=== PATIENT | female | born 1975 | race Caucasian/White ===

== ENCOUNTER → 2018-11-11 18:11 | Outpatient (CLI) | payer OTHER, SELFPAY | PROVIDERS: Family Provider Family Medicine; PCP Family Medicine; Referring Provider Obstetrics & Gynecology; Visit Provider Obstetrics & Gynecology | DX: R30.0 Dysuria (principal) | CPT/HCPCS: 87086 ==

== ENCOUNTER → 2019-04-13 14:26 | Outpatient (CLI) | payer OTHER, SELFPAY ==
--- NOTE | 2019-04-13 11:30 | CER_PTH ---
PATIENT: MICHAEL CALLE LOC: [facility] U#:[id number] AGE/SX: 50/F ROOM: RE04/13/[address]: Dr. Jackie Glover MD : 1975 BED: DIS: SPEC #: [id number] RECD: 04/13/19 14:22 STATUS: FUNMILAYO TERESA #: [id number] KEVEN: 04/13/19 11:[address]: Jackie Glover DEPT: SURGICAL PATHOLOGY RECD BY: Marco Antonio Graham ENTERED: 04/13/19 14:30 SP TYPE: CERV OTHR DR: Dr. Raghavendra Mendiola MD Tissues: Uterine cervix, NOS Procedures: Surgery Specimen Level IV HEADER OPERATION: Polypectomy PRE-OP DIAGNOSIS: Polyp of cervix, N84.1 TISSUE SUBMITTED: Endocervical polyp MICROSCOPIC DIAGNOSIS Endocervical polyp, polypectomy: Benign cervical polyp, mildly inflamed. See comment. AM:ivis 04/14/19 COMMENT The polyp contains both squamous and endocervical mucosa. MICROSCOPIC DESCRIPTION Slides are reviewed. GROSS DESCRIPTION Received in fixative is one container labeled with the patient's name and designated cervical polyp. The specimen consists of a piece of weber-pink polyp measuring 1 x 0.5 x 0.2 cm. A small amount of mucoid material is also noted. The entire specimen is submitted in one cassette. / SJ:rg 04/13/19 TC:1 CPT: 37482
[2019-04-18 17:31] LABS: HPV Reflexed? NOT INDICATED
== END ==
PROVIDERS: Family Provider Family Medicine; PCP Family Medicine; Referring Provider Obstetrics & Gynecology; Visit Provider Obstetrics & Gynecology
DX: N84.1 Polyp of cervix uteri (principal); Z12.4 Encounter for screening for malignant neoplasm of cervix
CPT/HCPCS: 88175; 88305; G0145

== ENCOUNTER → 2019-04-29 08:24 | Outpatient (CLI) | payer OTHER, SELFPAY ==
--- NOTE | 2019-04-29 08:26 | BI_ITS ---
MAMMOGRAPHY - BILATERAL SCREENING REASON FOR EXAM: Female, 44 years old. Routine annual screening examination. PERTINENT HISTORY: Non-contributory. TECHNIQUE: Digital bilateral breast lilly (3D mammographic acquisition) in the CC and MLO projections. 2-D mediolateral oblique (MLO) and craniocaudad (CC) views of both breasts were obtained. CAD: Full Field Digital Mammography with Computer Added Detection was performed. COMPARISON: Comparison is made with prior study to March 10, 2017 and November 20, 2015. FINDINGS: Breast Composition: The breasts are heterogeneously dense, which may obscure small masses. There are no dominant masses or suspicious calcifications. No other significant abnormalities are identified. There has been no significant change since the prior study. BI/SCREEN MAMM (CAD) W/LILLY BILAT IMPRESSION: Stable bilateral screening mammogram. Yearly follow-up mammogram recommended. (A) ASSESSMENT CATEGORY: BIRADS Category 1: Negative. A letter regarding these results will be sent to the patient by the facility within 30 days. Approximately 10% of breast cancers are not detected by mammography. A normal mammogram should not delay biopsy of a clinically suspicious abnormality. [id number] Electronically Signed: Hebert Schroeder, at 13:11 EDT , Service support ,
== END ==
PROVIDERS: Family Provider Family Medicine; PCP Family Medicine; Referring Provider Obstetrics & Gynecology; Visit Provider Obstetrics & Gynecology
DX: Z12.31 Encounter for screening mammogram for malignant neoplasm of breast (principal)
CPT/HCPCS: 77063; 77067

== ENCOUNTER → 2019-06-24 14:09 | Outpatient (CLI) | payer OTHER, SELFPAY ==
[2019-06-24 12:29] VITALS: BMI 26.6
== END ==
PROVIDERS: Family Provider Family Medicine; PCP Family Medicine; Referring Provider Physician Assistant Surgical; Visit Provider Physician Assistant Surgical
DX: J02.9 Acute pharyngitis, unspecified (principal)
CPT/HCPCS: 87070

== ENCOUNTER → 2019-08-03 07:25 | Outpatient (CLI) | payer OTHER, SELFPAY ==
[2019-06-24 12:29] VITALS: BMI 26.6
[2019-08-03 10:27] LABS: Anion Gap 4 (5-15); BUN 18 mg/dL (7-18); BUN/Creat Ratio 24.3 RATIO (10-20); Calcium,Total 8.9 mg/dL (8.5-10.1); Chloride 110 mmol/L (98-107); Cholesterol 197 mg/dL (200); Creatinine, Serum 0.74 mg/dL (0.55-1.02); EST Glomerular Filtration Rate 90 mL/min (>60); Est Glom Filt Rate - Afr Amer 109 mL/min (>60); Glucose 97 mg/dL (74-106); High Density Lipoprotein 73 mg/dL; Sodium Level 140 mmol/L (136-145); Thyroid Stim Hormone (TSH) 1.46 uIU/mL (0.358-3.74); Triglycerides 54 mg/dL; Very Low Density Lipoprotein 11 mg/dL (5-40)
[2019-08-03 10:43] LABS: Vitamin D,25 Hydroxy 20.4 ng/mL (29.95-100.01)
== END ==
PROVIDERS: PCP Family Medicine; Referring Provider Family Medicine; Visit Provider Family Medicine
DX: Z13.29 Encounter for screening for other suspected endocrine disorder (principal); Z13.220 Encounter for screening for lipoid disorders; Z13.21 Encounter for screening for nutritional disorder; Z13.1 Encounter for screening for diabetes mellitus
CPT/HCPCS: 36415; 80048; 80061; 82306; 84443

== ENCOUNTER → 2020-07-25 11:53 | Outpatient (CLI) | payer OTHER, SELFPAY ==
[2019-06-24 12:29] VITALS: BMI 26.6
[2020-07-25 15:39] LABS: Vitamin D,25 Hydroxy 23.6 ng/mL
[2020-07-25 15:51] LABS: Cholesterol 203 mg/dL (200); High Density Lipoprotein 66 mg/dL; Thyroid Stim Hormone (TSH) 1.12 uIU/mL (0.358-3.74); Triglycerides 65 mg/dL; Very Low Density Lipoprotein 13 mg/dL (5-40)
[2020-07-26 08:17] LABS: SARS-COV-2 TOTAL ABS Reactive (Nonreactive)
== END ==
PROVIDERS: PCP Family Medicine; Referring Provider Family Medicine; Visit Provider Family Medicine
DX: Z01.84 Encounter for antibody response examination (principal); Z13.220 Encounter for screening for lipoid disorders; Z13.29 Encounter for screening for other suspected endocrine disorder; Z13.21 Encounter for screening for nutritional disorder; Z13.31 Encounter for screening for depression
CPT/HCPCS: 36415; 80061; 82306; 84443; 86769

== ENCOUNTER → 2021-01-17 09:02 | Outpatient (CLI) | payer OTHER, SELFPAY ==
[2019-06-24 12:29] VITALS: BMI 26.6
--- NOTE | 2021-01-17 | IMM_PTH ---
PATIENT: MICHAEL CALLE LOC: [facility] U#:[id number] AGE/SX: 50/F ROOM: RE01/17/[address]: Dr. Mila Alfaro MD : 1975 BED: DIS: SPEC #: [id number] RECD: 01/18/21 11:38 STATUS: FUNMILAYO RE #: [id number] KEVEN: 01/17/21 00:[address]: Mila Alfaro DEPT: IMMUNOHISTOCHEMISTRY RECD BY: Shiloh Jackson Tissues: Left breast, NOS Procedures: E-CAD (initial) CALPONIN-1 (add) CK8 (add) P40 (add) PHYSICIAN & INSTITUTION [place] [id number] SPECIMEN INFORMATION: Tissue Source: Left breast Clinical Info: Grouped pleomorphic calcifications left breast at 1 o?clock middle depth Specimen Number: [id number] CPT code: 46995, 38246 x3 METHODOLOGY: Deparaffinized sections of prefer/formalin-fixed tissue or PAP/DQ stained slides are incubated with monoclonal/polyclonal antibodies/oligonucleotide probes. Localization is made via biotin free immunoperoxidase method. Appropriate controls are performed and reacted as expected. Results on target cell population are indicated in the following table: RESULTS: ANTIBODY / CLONE RESULT E-Cad (ECH-6) negative CK8 ([id number]) positive Calponin-1 (OL234K) positive P40 (BC28) positive These tests were developed and their performance characteristics determined by [facility]. They may not have been cleared or approved by the U.S. Food and Drug Administration. The FDA has determined that such clearance or approval is not necessary. The above immunohistochemical/dualISH markers are ordered and reviewed by the Pathologist. INTERPRETATION: Left breast, stereotactic core biopsy: Focal atypical lobular hyperplasia. SJ:ivis 01/21/2021
--- NOTE | 2021-01-17 09:20 | BRBX_PTH ---
PATIENT: MICHAEL CALLE LOC: [facility] U#:[id number] AGE/SX: 50/F ROOM: RE01/17/[address]: Dr. Mila Alfaro MD : 1975 BED: DIS: SPEC #: [id number] RECD: 01/17/21 10:01 STATUS: FUNMILAYO TERESA #: [id number] KEVEN: 01/17/21 09:[address]: Mila Alfaro DEPT: SURGICAL PATHOLOGY RECD BY: Marco Antonio Graham Tissues: Left breast, NOS Procedures: Surgery Specimen Level IV HEADER OPERATION: Left breast stereotactic biopsy PRE-OP DIAGNOSIS: Grouped pleomorphic calcifications left breast at 1 o?clock middle depth TISSUE SUBMITTED: Left breast core tissue ISCHEMIC TIME: 1 minute FIXATION TIME: 10 hours MICROSCOPIC DIAGNOSIS Left breast, stereotactic core biopsy: Hyalinized fibroadenoma with focal calcifications. Fibrocystic changes, adenosis and intraductal hyperplasia without atypia. Focal atypical lobular hyperplasia. Negative for malignancy. See comment. RAMÓN:ivis 01/18/2021 COMMENT Focal calcifications are also noted in the area of benign breast tissue, adenosis and intraductal hyperplasia without atypia. Immunohistochemistry ([id number]) supports the diagnosis of focal atypical lobular hyperplasia. Correlation with clinical, radiologic findings and appropriate follow up are necessary. Case has been reviewed in consultation with Dr. Tidwell who concurs with the above diagnosis. IDC:AM MICROSCOPIC DESCRIPTION Slides are reviewed. GROSS DESCRIPTION Received in fixative is one container labeled with the patient name and designated left breast. The specimen consists of multiple elongated fragments of weber-yellow fibroadipose tissue that in aggregate measure 5 x 3 x 0.3 cm. The entire specimen is submitted in two cassettes. / RAMÓN:ivis 01/17/21 TC:5 CPT: 97829
--- NOTE | 2021-01-17 13:52 | OP.PCM_ITS ---
Report of Operation Date of Procedure: 01/17/21 Pre-Operative Diagnosis: abnormal calcifications on left breast mammograms Post-Operative Diagnosis: same Surgery/Procedure Performed:: left stereotactic breast biopsy Description of Surgical Findings:: small diffuse area of calcifications Surgeon: Mila Alfaro Type of Anesthesia: Local (1%xylocaine) Specimen's removed: left breast tissue Estimated Blood Loss (mL): minimal Description of Procedure: After informed consent was given, the patient was brought into the Breast Biopsy suite. Appropriate time out protocol was followed. The patient was placed in the prone position on the stereotactic biopsy table. The patient?s left breast was then placed in the opening at the head of the biopsy table. A exhibit carpenter compression mammogram was then obtained in the lateral view. The suspicious radiological lesion was thus identified. Stereo pictures of the lesion were then taken for XYZ coordinates. The Mammotome biopsy stylus was then positioned where it would be entering into the patient?s breast. The skin at this site was then cleansed with a surgical skin preparation. The skin and subcutaneous tissues at this site were then infiltrated with 1% xylocaine. A small skin incision was made with an 11 blade scalpel. The biopsy stylus was then positioned into the patient?s breast at the proper coordinates of depth. Using the Mammotome vacuum-assist device, several core samples of breast tissue were obtained. A specimen mammogram was the obtained. It revealed that the abnormal calcifications were within the specimen. I reviewed this personally and concluded that the tissue sampling was adequate. A hemostatic marker clip, bow tie, was then placed into the biopsy cavity and a exhibit carpenter film revealed that it was properly deployed. The patient was then placed in the supine position and pressure was applied to the breast until no active bleeding was noted. Steristrips were applied to reapproximate the skin. A unilateral mammogram in the CC and MLO view were then taken which revealed that the marker clip was in the same area as the previous suspicious lesion. The patient tolerated the procedure well and was discharged from the Breast Biopsy suite in good condition. Complications none noted
== END ==
PROVIDERS: Referring Provider Surgery; Visit Provider Surgery
DX: N60.22 Fibroadenosis of left breast (principal); D24.2 Benign neoplasm of left breast; N60.92 Unspecified benign mammary dysplasia of left breast
CPT/HCPCS: 19081; 88305; 88341; 88342; J7050; A4648

== ENCOUNTER 2021-01-29 10:07 | Day surgery (SDC) | payer OTHER, SELFPAY ==
[2019-06-24 12:29] VITALS: BMI 26.6
--- NOTE | 2021-01-28 20:05 | PCM.HP.BLA ---
History and Physical Date of Admission: 01/29/21 Olivia Kwon 1975 ? CHIEF COMPLAINT: left breast atypical lobular hyperplasia ? HPI: The patient is a 45 year old female presents with abnormal left breast mammograms. s/p left breast stereotactic biopsy revealing atypical lobular hyperplasia. She presents for wide local excision. ? PAST MEDICAL HISTORY ? NEGATIVE MEDICAL HISTORY ? PAST SURGICAL HISTORY ? LIGATE FALLOPIAN TUBE ? ? ? MEDICATIONS: denies ? ALLERGIES: Environmental [Other] NKDA ? PERSONAL HISTORY: ? Smoking status: Never Smoker ? Smokeless tobacco: Never Used Vaping Use ? Vaping Use: Never used Substance Use Topics ? Alcohol use: Yes ? Drug use: No FAMILY HISTORY ? Emphysema Maternal Grandfather ? REVIEW OF SYSTEMS: General: The patient denies fatigue, denies weight loss, denies weight gain, denies feeling hot, and denies feelings of cold. Eyes: The patient denies glaucoma, NOTES eye injury/surgery, does not wear glasses or contacts. Ear/Nose/Throat: The patient NOTES allergies, denies hayfever, denies ear infections, and denies bloody noses. ascular: The patient denies chest pain, denies heart disease, denies high blood pressure,denies cardiac stent, denies prior heart attack, denies irregular heart beat, denies high cholesterol, denies poor circulation, denies heart failure, other cardiac issues, denies claudication, denies cold feet, denies peripheral arterial stent. Respiratory: The patient denies tuberculosis, denies pneumonia, denies frequent cough, denies pulmonary embolism, denies shortness of breath, and denies coughing up blood. Gastrointestinal: The patient denies difficulty swallowing, denies acid reflux, denies ulcers, denies vomiting, denies jaundice/hepatitis, denies gallbladder problems, denies black or tarry stools, denies hemorrhoids, denies bleeding from rectum, denies diverticulitis, denies constipation, denies diarrhea, denies loss of stool control, and denies hernias. Kidney/Bladder: The patient denies kidney stones, denies urine infections, and denies bloody urine. Skin: The patient denies a history of skin cancer, denies bleeding/changing moles, and denies a history of skin rash. Neurologic: The patient denies a history of epilepsy/convulsions, NOTES headaches, denies head/spinal injuries, and denies stroke/TIA. Psychiatric: The patient denies psychiatric medications, denies depression, and denies voices, denies substance abuse. Endocrine: The patient denies thyroid disorders, denies diabetes, and denies hormonal problems. Hematologic: The patient denies a history of bruising, denies bleeding, and denies anemia, denies blood clots. Infections: The patient denies a history of measles and mumps, denies rheumatic fever, and denies sexually transmitted diseases. Musculoskeletal: The patient denies back pain/injury, denies back problems, denies sciatica, denies knee/foot trouble, denies arthritis, or denies gout. Obstetrical: Menarche age 10, Ab1, first age 34, breast feeding 10m, BCP use initially age 17 until age 29, LMP 01/04 When was patient's last Mammogram screening? 12/10/2020 Last Colonoscopy: N/A Chelsea Nix LPN PHYSICAL EXAMINATION: General: The patient is 45 year old female, well nourished, well hydrated in no acute distress. The patient is oriented to time, place, and person. VITALS: Blood pressure 124/78, pulse 97, temperature 37.1 ?C (98.7 ?F), height 165.1 cm (5' 5), weight 79.4 kg (175 lb), last menstrual period 12/09/2020, SpO2 97 %. Body mass index is 29.12 kg/m?. Head ? Normocephalic. EOM intact with sclera clear and no icterus noted. Neck - supple with no jugular venous distention noted. Trachea is midline. No thyroid enlargement or thyroid nodules detected. No masses noted. Chest/breast ? no asymmetry of breasts noted, no suspicious skin lesions noted, no nipple discharge and both nipples everted, no breast masses noted Lungs ? clear to auscultation. Normal breath sounds. No rales/rhonchi/wheezing noted. No labored breathing noted, such as retractions. No cough heard. Heart ? normal S1 and S2 auscultated. No rubs/clicks/murmurs noted. Regular rate. Abdomen ? soft and benign. Normal bowel sounds No abdominal bruits noted. Extremities ? no calf tenderness noted. No pitting edema noted. Skin ? normal skin integrity. Lymph ? no cervical adenopathy detected, no supraclavicular adenopathy detected, no axillary adenopathy detected Neurological ? gait normal, no focal deficits noted Psych ? calm and appropriate RADIOLOGIC STUDIES: As Noted ? IMPRESSION: abnormal calcifications on left breast mammograms ? PLAN: I have discussed the above with the patient. I have recommended wide local excision - that is open left breast biopsy via wire localization I have counseled the patient as to the risks of the procedure, including but not limited to: infection, bleeding, injury to any blood vessels/nerves, scar tissue, wound infections, complications of anesthesia, etc. ? the patient understands. The patient wishes to proceed. I have answered all questions to the patient?s satisfaction and the patient has no further questions. Mila Alfaro MD
[2021-01-29] VITALS (7 sets, daily range): BP systolic 95–111; BP diastolic 65–79; PULSE 66–90; RESP 14–16; TEMP 36–36.6; O2SAT 97–100; BMI 28.7
--- NOTE | 2021-01-29 | BREAST_PTH ---
PATIENT: MICHAEL CALLE LOC: [facility] U#:[id number] AGE/SX: 45/F ROOM: RE01/29/[address]: Dr. Mila Alfaro MD : 1975 BED: DIS: 01/29/2021 SPEC #: [id number] RECD: 01/29/21 15:01 STATUS: FUNMILAYO REAlaina #: [id number] KEVEN: 01/29/21 00:[address]: Mila Alfaro DEPT: SURGICAL PATHOLOGY RECD BY: Gail Strauss ENTERED: 01/30/21 08:41 SP TYPE: BREAST OTHR DR: Dr. Raghavendra Mendiola MD Tissues: Left breast, NOS Procedures: Surgery Specimen Level V HEADER OPERATION: Left breast lumpectomy PRE-OP DIAGNOSIS: Abnormal calcifications on left breast mammogram TISSUE SUBMITTED: Left breast tissue, two short sutures - anterior, one short suture - superior, long suture - posterior MICROSCOPIC DIAGNOSIS Left breast, lumpectomy: Lobular neoplasia present. Intraductal hyperplasia without atypia. Fibrocystic change. Changes of previous biopsy. Banal microcalcifications. See comment. 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 No invasive carcinoma is identified. Immunohistochemistry ([id number]) supports the above diagnosis. Reference is made to the patient's left breast stereotactic core biopsy ([id number]) in which hyalinized fibroadenoma, fibrocystic change and focal atypical lobular hyperplasia was identified. Case has been reviewed in consultation with Dr. Gates who concurs with the above diagnosis. IDC:RAMÓN MICROSCOPIC DESCRIPTION Slides are reviewed. GROSS DESCRIPTION Received fresh and post-fixed in formalin is one container labeled with the patient's name and designated left breast tissue, two short sutures - anterior, one short suture - superior, long suture - posterior. The specimen consists of a piece of fibroadipose tissue with needle localization measuring 6 x 5 x 3.5 cm. The specimen is inked as follows: anterior - yellow, posterior - black, superior - blue, inferior - green, medial - red and lateral - orange. Sections reveal weber-yellow adipose cut surfaces with focal fibrous area. No ill-defined mass lesion is identified. Focal area of hemorrhage consistent with previous biopsy cavity is noted close to posterior margin. Aircraft Engine Specialist sections are submitted in 12 cassettes from lateral to medial margin including resection margin. About 90% of the specimen is submitted. Sections will be submitted after additional fixation. / RAMÓN:ivis 01/30/21 TC:0 CPT: 51140
--- NOTE | 2021-01-29 | IMM_PTH ---
PATIENT: MICHAEL CALLE LOC: [facility] [place] U#:[id number] AGE/SX: 45/F ROOM: RE01/29/[address]: Dr. Mila Alfaro MD : 1975 BED: DIS: 01/29/2021 SPEC #: [id number] RECD: 02/01/21 12:56 STATUS: FUNMILAYO REQ #: [id number] KEVEN: 01/29/21 00:[address]: Mila Alfaro DEPT: IMMUNOHISTOCHEMISTRY RECD BY: Shiloh Jackson ENTERED: 02/01/21 12:57 SP TYPE: IMMUNO OTHR DR: Dr. Raghavendra Mendiola MD Tissues: Left breast, NOS Procedures: E-CAD (initial) CALPONIN-1 (add) E-CAD (add) P40 (add) PHYSICIAN & INSTITUTION [place] [id number] SPECIMEN INFORMATION: Tissue Source: Left breast Clinical Info: Left breast calcifications Specimen Number: [id number] #3, 5 & 8 CPT code: 74859, 34422 x8 METHODOLOGY: Deparaffinized sections of prefer/formalin-fixed tissue or PAP/DQ stained slides are incubated with monoclonal/polyclonal antibodies/oligonucleotide probes. Localization is made via biotin free immunoperoxidase method. Appropriate controls are performed and reacted as expected. Results on target cell population are indicated in the following table: RESULTS: ANTIBODY / CLONE RESULT Block 3 E-Cad (ECH-6) negative Calponin-1 (RF109R) positive P40 (BC28) positive Block 5 E-Cad (ECH-6) negative Calponin-1 (NW654C) positive P40 (BC28) positive Block 8 E-Cad (ECH-6) negative Calponin-1 (WQ833J) positive P40 (BC28) positive These tests were developed and their performance characteristics determined by [facility]. They may not have been cleared or approved by the U.S. Food and Drug Administration. The FDA has determined that such clearance or approval is not necessary. The above immunohistochemical/dualISH markers are ordered and reviewed by the Pathologist. INTERPRETATION: Left breast, lumpectomy: Consistent with lobular intraepithelial neoplasia. AM:ivis 02/04/2021 Case has been reviewed in consultation with Dr. Gates who concurs with the above diagnosis. IDC:RAMÓN
--- NOTE | 2021-01-29 10:10 | BI_ITS ---
SURGICAL BREAST SPECIMEN RADIOGRAPH CLINICAL: Document presence of tissue clip marker in biopsy specimen. FINDINGS: Specimen shows presence of tissue clip marker. Electronically Signed: Hebert Schroeder MD at 15:30 EDT , Service support , BI/Breast Biopsy Specimen
[2021-01-29] MEDS: Cefazolin 2 GM in 0.9% Normal Saline 100 ML IV (14:25)
--- NOTE | 2021-01-29 15:08 | OP.PCM_ITS ---
Report of Operation Date of Procedure: 01/29/21 Pre-Operative Diagnosis: atypical lobular hyperplasia of left breast Post-Operative Diagnosis: same Surgery/Procedure Performed:: left breast biopsy via wire localization Description of Surgical Findings:: deep RUO quadrant lesion Surgeon: Mila Alfaro spray machine operator: Arsen Wilson Type of Anesthesia: MAC/Supplemental/Local Anesthesiologist: Deni Daniels Specimen's removed: left breast tissue Estimated Blood Loss (mL): < 10 ml Fluids Replaced: 550 ml RL Description of Procedure: After informed consent was given, the patient was brought into the Breast Stereotactic Radiology suite. Appropriate time out protocol was followed. The patient was then placed in the prone position on the [place] stereotactic table. The patient?s left breast was placed in the opening at the head of the table. A cash applications clerk compression mammogram was then obtained in the lateral view. The marker clip that was previously placed was identified. Stereo pictures of the lesion were then taken for XYZ coordinates. The Kopans needle was then positioned where it would be entering into the patient?s breast. The skin at this site was then cleansed with a surgical skin preparation. The skin and subcutaneous tissues at this site were then infiltrated with 1% xylocaine. The Kopans needle was then positioned into the patient?s breast at the proper coordinates of depth. A cash applications clerk film was obtained which revealed the wire in proper position. The patient was then placed in the supine position and the wire was taped into place. A unilateral mammogram in the CC and MLO view were then taken for use in the OR. The patient tolerated this portion of the procedure well and was brought to the AC awaiting surgery in the OR. The patient was then brought to the Operating Room. Appropriate time out protocol was followed. The patient was then placed on the operating table in the supine position. A wire had already been placed in the stereotactic biopsy room in the radiology department as described above. The left breast with the wire in placed was then prepped with a sterile surgical skin preparation and sterile surgical drapes were placed. The skin and subcutaneous tissues at the site of the breast lesion was then infiltrated with 1% xylocaine with epinephrine. A transverse curvilinear skin incision was then made in the lateral aspect of the left breast. It was carried down through to the subcutaneous tissues. Hemostasis was controlled with electrocautery. The wire was then palpated out within the breast tissue. It was brought into the wound from outside. The breast tissue surrounding the wire was then carefully palpated out and from the surrounding tissues using electrocautery. Of note, the lesion was deep, to the fascia of the pectoralis muscle. The breast tissue, once from the breast, was then forwarded to the radiology department, where a specimen mammogram revealed that the marker clip was within the specimen. The breast tissue was then forwarded to pathology for analysis. The tissue was marked with two short sutures anteriorly, one long suture posteriorly, one short suture superiorly. The wound cavity was carefully examined. No further suspicious tissue was palpated or visualized. Hemostasis was carefully controlled with electrocautery. The subdermal tissues were then approximated with vicryl suture. The incision was then reapproximated close using running monocryl suture. Cavilon and steristrips were then placed to reinforce the skin closure. Sponge, needle, and instrument count were verified and correct at the time of skin closure. A sterile dressing was then applied. The patient was then brought to the Recovery Room in stable condition. Complications none noted Admit VTE Documentation VTE Present on Admission: Yes VTE Mechan Device Prophylaxis: SCD's
[2021-01-29] MEDS: Lidocaine 1% /Epi 1:100 (50ml) 50 ML VIAL (15:09)
--- NOTE | 2021-01-29 15:11 | DCINST_ITS ---
Discharge Instructions Follow Up Care Test Results: Test results from this visit will be discussed in further detail at your follow-up appointment, if applicable. Discharge Plan Admission Attending Provider: Mila Alfaro Primary Care Provider: Vito Mendiola Instructions Additional Instructions / Restrictions: Recommended pain control regimen - May take 600 mg ibuprofen (Motrin) and then in 3-4 hours, may take 650 mg acetaminophen (Tylenol), then in 3-4 hours may take 600 mg ibuprofen, then in 3- 4 hours may take 650 mg acetaminophen and so on for 2-3 days May take narcotic pain medication for pain that is not controlled by above and at night for comfort through the night Leave dressings in place May shower, do not scrub in the area of the dressing as it may unravel. If dressing become overly soiled you may remove them but leave incision site open to air. Do not soak - no tub baths/swimming Ice applied to areas of discomfort may help For breast surgeries - wear supportive bra during the day to prevent the weight of your breasts from pulling on the incisional site. Please call my office for an appointment to see me in about 1 week. Office number is If any questions, please call my office at and ask the shredding floor equipment operator for the general surgery nurses desk Discharge Orders/Prescriptions Prescriptions: New hydrocodone-acetaminophen 5-325 mg tablet 1 tab PO Q8H 3 Days Qty: 7 RF: 0 No Action NK RF: 0 Referrals / Follow Up: Vito Mendiola MD [Primary Care Provider] - Disposition Disposition (needs filled in before D/C Order can be placed): Home, Self Care
== END 2021-01-29 17:15 | disposition home or self-care (01) ==
LOC: BIRAD 10:09 → SDC 10:10 → AC 10:16
PROVIDERS: PCP Family Medicine; Referring Provider Surgery; Visit Provider Surgery
PROC: (CPT 19301; principal; 2021-01-29 12:45)
DX: C50.912 Malignant neoplasm of unspecified site of left female breast (principal); N60.12 Diffuse cystic mastopathy of left breast; N62 Hypertrophy of breast
CPT/HCPCS: 00400; 19101; 19283; 19281; 76098; 88305; 88307; 88341; 88342; J7120

== ENCOUNTER → 2021-06-18 12:02 | Outpatient (CLI) | payer OTHER, SELFPAY ==
--- NOTE | 2021-06-18 12:09 | RAD_ITS ---
STUDY: X-RAY - RIGHT FOOT CLINICAL: Pain in first metatarsal area, right foot injury. TECHNIQUE: 3 view(s) of the foot. COMPARISON: None. FINDINGS: Normal talus, calcaneus, and tarsal bones. Normal visualized subtalar, talonavicular, calcaneocuboid, tarsal and tarsometatarsal articulations. Normal metatarsi. Normal metatarsophalangeal joint of the great toe. Normal tibial and fibular sesamoid bones. Normal interphalangeal joint of the great toe. Normal phalanges of the great toe. Normal second through fifth metatarsophalangeal joints. Normal interphalangeal joints and phalanges of the lesser toes. The soft tissue structures are unremarkable. RAD/Foot min 3 Views IMPRESSION: No demonstrated right foot fracture. Electronically Signed: Albino Govea MD at 13:03 EST Tel , Service support ,
== END ==
PROVIDERS: PCP Family Medicine; Referring Provider Family Medicine; Visit Provider Family Medicine
DX: M79.671 Pain in right foot (principal)
CPT/HCPCS: 73630

== ENCOUNTER 2021-07-29 09:31 | Outpatient (CLI) | payer OTHER, SELFPAY ==
[2021-07-29 10:43] LABS: Vitamin D,25 Hydroxy 27.4 ng/mL
[2021-07-29 10:51] LABS: Anion Gap 7 (5-15); BUN 11 mg/dL (7-18); BUN/Creat Ratio 19.7 RATIO (10-20); Calcium,Total 8.6 mg/dL (8.5-10.1); Chloride 106 mmol/L (98-107); Cholesterol 191 mg/dL (200); Creatinine, Serum 0.56 mg/dL (0.55-1.02); EST Glomerular Filtration Rate 123 mL/min (>60); Est Glom Filt Rate - Afr Amer 149 mL/min (>60); Glucose 98 mg/dL (74-106); High Density Lipoprotein 72 mg/dL; Potassium 3.8 mmol/L (3.5-5.1); Sodium Level 138 mmol/L (136-145); Triglycerides 69 mg/dL; Very Low Density Lipoprotein 14 mg/dL (5-40)
== END 2021-07-29 23:59 | disposition short-term general hospital (02) ==
LOC: MTLAB 09:33
PROVIDERS: PCP Family Medicine; Referring Provider Family Medicine; Visit Provider Family Medicine
DX: Z13.1 Encounter for screening for diabetes mellitus (principal); Z13.220 Encounter for screening for lipoid disorders; E55.9 Vitamin D deficiency, unspecified
CPT/HCPCS: 36415; 80048; 80061; 82306

== ENCOUNTER 2022-03-20 15:00 | Outpatient (RCR) | payer OTHER, SELFPAY ==
--- NOTE | 2022-02-17 17:21 | HP.PTEVAL ---
Patient's Visit Information MICHAEL CALLE is a 47 year old F referred to Physical Therapy by Dr. Kannan Peterson DPM with a diagnosis of Achilles Tendonitis with Heel Spur. Date of Evaluation: 02/17/22 Physical Therapist: Jodi Rajput DPT - Visit Plan Frequency: 2x /Week Duration: 4 Weeks Plan: Focus on core s/s- Gastroc Stretching- Manual of Joshua and Possibly add DN PRN. HEP Given IE: TA contraction, bridge, hip adduction, clams - Subjective Patient reports that her right foot just really hurts. Its the worst in the AM and then better throughout the day. She has had pain for a few months. She has had it before but it goes away quickly and now its not going away and getting worse. She was walk/run 4-5x a week so she is now just using her bike. Pain is located along the Achilles and along the medial malleolus. No radiating pain. Describes it as dull and achy throughout the day- but the first step is pretty terrible. Worst: 7/10. Agg: morning and if she is really active the day before its horrible in the AM. Eases: moving, massage Best: 0/10. She has a night splint but she only wears it sometimes. She is very active and would like to get back to running. Sleep: not disturbed. But does have achy pains when she is sitting down at night. Does have numbness in that area. 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 She is wearing tennis shoes. She has more pain with less supportive pain. Does wear a heel lift and it made her foot worse. No orthotics in her shoes. [employer] running shoes. She has had x-rays which showed a bone spur- no MRI. No injections, creams or medication- she does take Ibuprofen in the AM sometimes when its really bad. PMHx: none Meds: Claritin, Flonase, Vit D. - Objective Posture: FH, RS- can correct with verbal cues but does not maintain. Gait: decreased heel/toe pattern on the right. HR/TR: able without pain- Eccentric: no pain but feels a stretch. SLS: 10 sec increased muscle activation and sway- moderate hip drop. ROM: WFL in all planes. Strength: Core: fair, Hip: 4/5, Knee: 5/5, Ankle: 5/5. Flex: HS: moderate, Gastroc: moderate, Soleus: moderate. Palpation: not tender to touch - Balance/Special Test Scores Lower Extremity Functional Score: 56 - Goals Goal 1:: Patient will be I with HEP and progression Goal Time Frame: 4-6 Weeks Goal 2:: Patient will report no pain for 1 week Goal Time Frame: 4-6 Weeks Goal 3:: Patient will maintain proper posture t/o tx session to demo increased core s/s Goal Time Frame: 4-6 Weeks - Rehabilitation Potential Physical Therapy Diagnosis: Patient presents with hypomobility- she has decreased core s/s, flex and muscular endurance leading to abnormal gait pattern and decreased ability to perform ADL's. Rehabilitation Potential: Good - Anticipated Interventions Patient/Client Instruction: Educate patient on: Benefits of Fitness Program Therapeutic Exercise to Include: Strength training, Endurance training, Balance training, Coordination, Agility training, Body mechanics, Postural training, Flexibilty training, Gait and locomotor training, Neuromotor development, Dynamic Lumbar Stabilization, Scapular Strength/Stabilization For the Purpose of:: To improve muscle performance and motor function TENS: No Cryotherapy (ice pack, ice massage): Yes Thermo therapy (hot pack): Yes Ultrasound (thermal/non thermal): No Thank you for the opportunity to evaluate your patient. For Medicare and Medicare HMO plans, please review the plan of care and approve it. It will need to be FAXED BACK to us at [phone] for Medicare purposes. For Medicare only, by signing this I certify the plan of care. Please let me know if there are questions or concerns regarding this plan of care. Physician Signature: Date:
--- NOTE | 2022-03-20 15:39 | HP.PTDCSUM_ITS ---
It has been my pleasure to treat MICHAEL CALLE referred by Dr. Kannan Peterson DPM, with the diagnosis of Achilles Tendonitis with Heel Spur for a total of 7 visit(s). Discharge Date: Please see the following information for a summary of their discharge status. Subjective: Patient reports that she has been having EPAT done at Dr. Peterson office- 2 treatments left. She feels that it has helped. She is having some achiness. R heel Pain Intensity (Out of 10): 0 % Improvement: 80 Objective/Function: Posture: FH, RS- can correct with verbal cues but does not maintain. Gait: no deviation noted HR/TR: able without pain- Eccentric: no pain . SLS: 30 sec no deviation noted. ROM: WFL in all planes. Strength: Core: fair, Hip: 4+/5, Knee: 5/5, Ankle: 5/5. Flex: HS: moderate, Gastroc: moderate, Soleus: moderate. Palpation: not tender to touch Goal 1:: Patient will be I with HEP and progression Goal Progress: Goal Met Goal 2:: Patient will report no pain for 1 week Goal Progress: Goal Met Goal 3:: Patient will maintain proper posture t/o tx session to demo increased core s/s Goal Progress: Goal Met Plan: Discharge to [facility] If there are questions or concerns regarding this patient's physical therapy, please feel free to call me at [phone]. Thank you for the referral of this patient. Sincerely, Jodi Rajput, VASILE Balance/Gait/Functional tests - Balance/Special Test Scores Lower Extremity Functional Score: 71
== END 2022-03-20 19:00 | disposition home or self-care (01) ==
LOC: PT 15:00
PROVIDERS: PCP Family Medicine; Referring Provider Podiatrist; Visit Provider Podiatrist
DX: M76.61 Achilles tendinitis, right leg (principal); M77.31 Calcaneal spur, right foot
CPT/HCPCS: 97110; 97140; 97162; 97164

== ENCOUNTER → 2022-07-31 | Outpatient (CLI) | payer OTHER, SELFPAY ==
[2022-07-31 10:36] LABS: Vitamin D,25 Hydroxy 39.5 ng/mL
[2022-07-31 10:43] LABS: Anion Gap 9 (5-15); BUN 14 mg/dL (7-18); BUN/Creat Ratio 23.6 RATIO (10-20); Calcium,Total 8.7 mg/dL (8.5-10.1); Chloride 106 mmol/L (98-107); Cholesterol 192 mg/dL (200); Creatinine, Serum 0.59 mg/dL (0.55-1.02); EST Glomerular Filtration Rate 115 mL/min (>60); Est Glom Filt Rate - Afr Amer 139 mL/min (>60); Glucose 105 mg/dL (74-106); High Density Lipoprotein 67 mg/dL; Potassium 3.7 mmol/L (3.5-5.1); Sodium Level 140 mmol/L (136-145); Thyroid Stim Hormone (TSH) 1.88 uIU/mL (0.358-3.74); Triglycerides 50 mg/dL; Very Low Density Lipoprotein 10 mg/dL (5-40)
== END | disposition home or self-care (01) ==
LOC: MFPLAB 09:06
PROVIDERS: PCP Family Medicine; Referring Provider Family Medicine; Visit Provider Family Medicine
DX: Z13.1 Encounter for screening for diabetes mellitus (principal); E55.9 Vitamin D deficiency, unspecified; Z13.29 Encounter for screening for other suspected endocrine disorder; Z13.220 Encounter for screening for lipoid disorders
CPT/HCPCS: 36415; 80048; 80061; 82306; 84443

== ENCOUNTER 2023-01-13 13:55 | Emergency (ER) | payer OTHER, SELFPAY ==
[2023-01-13 13:57] VITALS: BP 122/98; PULSE 79; RESP 18; TEMP 35.9; O2SAT 97
[2023-01-13 14:10] VITALS: BMI 29.9
--- NOTE | 2023-01-13 14:12 | RAD_ITS ---
STUDY: X-RAY - RIGHT ANKLE REASON FOR EXAM: Female, 47 years old. Pain and swelling following injury. TECHNIQUE: 3 view(s) of the ankle. COMPARISON: None. FINDINGS: Normal visualized distal tibia and fibula. Nondisplaced transverse fracture of the lateral malleolus. Normal tibiotalar articulation and ankle mortise. Spur is seen at the insertion of the Achilles tendon. The visualized subtalar, talonavicular, calcaneocuboid and tarsal articulations are normal. Lateral soft tissue swelling. RAD/Ankle min 3 Views IMPRESSION: Nondisplaced transverse fracture of the lateral malleolus with overlying soft tissue swelling. Electronically Signed: Hebert Schroeder MD at 14:44 EDT ,
--- NOTE | 2023-01-13 15:26 | EDS_ITS ---
HPI History of Present Illness Chief Complaint: Lower Extremity Injury Narrative Narrative: Patient is a 47-year-old female no significant past medical history presenting with acute right ankle pain. Patient was walking in downtown [place] when she twisted her ankle. She did not fall but she did stumble. She had immediate pain and swelling. She does have some mild tingling in her foot. No other complaints or injuries. Did not take any for pain prior to arrival. Patient notes that she felt nauseous and lightheaded when it first happened but states it was attributed to the pain. Pain is worse in the lateral malleolus area. [facility] Medical History (Updated 01/13/23 @ 15:[address] Enedina Rice, DO) Seasonal allergies Home Medications hydrocodone-acetaminophen 5-325mg 5mg-325mg 1 tab PO Q8H 3 days #7 tabs 01/29/21 [Rx Last Taken Unknown] hydrocodone-acetaminophen 5-325mg 5mg-325mg 1 tab PO Q6H PRN PRN Pain 3 days #12 TABLETS 01/13/23 [Rx Last Taken Unknown] ibuprofen 600 mg tablet 600 mg PO Q6H PRN PRN pain #20 TABLETS 01/13/23 [Rx Last Taken Unknown] ondansetron HCl 4 mg tablet 4 mg PO Q6H PRN nausea and vomiting #20 tabs 01/13/23 [Rx Last Taken Unknown] Allergy/AdvReac Type Severity Reaction Status Date / Time No Known Allergies Allergy Verified 01/13/23 13:58 Surgical History History of hysteroscopy Hx of bilateral salpingectomy Tubal ligation status Social History (Updated 06/24/19 @ 14:01 by Ananth COVARRUBIAS, SATISH) Smoking Status: Never smoker alcohol intake: current alcohol intake frequency: holidays/special occasions only ROS ROS ED Constitutional Constitutional ED: Denies chills or fever(s) Gastrointestinal Gastrointestinal: Reports nausea; Denies vomiting Musculoskeletal Musculoskeletal: Reports other Details: Right ankle pain Integumentary Denies Abrasions or rash Neurologic Neurologic: Denies headache(s), paresthesias or weakness Hematologic/Lymphatic Hematologic/Lymphatic: Denies easy bleeding or easy bruising EXAM Physical Exam Const Vital Signs: 01/13/23 13:57 Temperature 96.7 F L Temperature Source Temporal Pulse Rate 79 Respiratory Rate 18 Blood Pressure 122/98 H Blood Pressure Mean 106 Pulse Ox 97 Oxygen Delivery Method Room Air Positive well nourished and well developed General Appearance ED: well developed and NAD HEENT Reports moist mucous membranes Neck supple Chest Wall inspection of chest normal Resp normal respiratory effort Cardio regular rate and regular rhythm Cardio Narrative: 2+ DP pulse Extremity Extremity Narrative: Tenderness and swelling of the right ankle located around the lateral malleolus. No significant effusion. No tenderness over the medial malleolus. Range of motion decree secondary to pain. No obvious deformity despite the soft tissue swelling General Extremety ED: Yes weight-bearing difficulty General Extremity: weight-bearing difficulty Neuro oriented x3 Sensorium / Orientation: alert Psych mental status grossly normal Skin no wounds MDM MDM MDM Narrative Medical decision making narrative: Patient is evaluated for cute onset of right ankle pain. Protocol x-ray obtained. This is interpreted by myself as well as radiology which shows a nondisplaced transverse fracture of the lateral malleolus with overlying soft tissue swelling. This is a Haddad a fracture which is stable. The case is discussed with Ortho on-call, Dr. Pate, who is agreeable with weightbearing as tolerated with a walking boot and outpatient follow-up. Patient is agreeable this plan of care. Patient would just like ibuprofen at this time but is amenable to prescription for [place] for breakthrough pain. She is also given a prescription for Zofran as she states she gets nausea associated with pain pills. Patient counseled return precautions. She is neurovascular intact. Discharged home in stable condition. This patient's also at the bedside is agreeable with this plan of care. Radiography Diagnostic Testing: Clinical Impression(s) from Imaging Studies Ankle X-Ray 01/13/23 14:12 IMPRESSION: Nondisplaced transverse fracture of the lateral malleolus with overlying soft tissue swelling. 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 Discharge Plan Triage Chief Complaint: Lower Extremity Injury ED Provider: Enedina Rice Dx/Rx/DC Orders Clinical Impression: Acute right ankle pain, Fracture of distal end of right fibula Instructions: ED Ankle Fracture, Distal Fibula Prescriptions: New hydrocodone-acetaminophen 5-325 mg tablet 1 tab PO Q6H PRN PRN (Reason: Pain) 3 Days Qty: 12 0RF ibuprofen 600 mg tablet 600 mg PO Q6H PRN PRN (Reason: pain) Qty: 20 0RF ondansetron HCl 4 mg tablet 4 mg PO Q6H PRN (Reason: nausea and vomiting) Qty: 20 0RF No Action hydrocodone-acetaminophen 5-325 mg tablet 1 tab PO Q8H 3 Days Qty: 7 0RF Primary Care Provider: Vito Mendiola Referrals: Vito Mendiola MD [Primary Care Provider] - Yazan Pate DO [Med Staff - Active Staff] - 1 Week Activity Restrictions/Additional Instructions: Wear your cam boot while awake and while walking. You can bear weight as tolerated/walk as tolerated. You been prescribed ibuprofen 600 mg. You may alt ernate this with Tylenol. I will prescribe you a short course of [place] for breakthrough pain. Please be mindful that there is Tylenol in the pain pill to do not take too much Tylenol with that. Disposition Disposition: Home, Self Care
[2023-01-13] MEDS: Ibuprofen 600 MG Tablet PO (16:00)
== END 2023-01-13 16:15 | disposition home or self-care (01) ==
PROVIDERS: Emergency Provider Emergency Medicine; PCP Family Medicine; Visit Provider Emergency Medicine
DX: S82.64XA Nondisplaced fracture of lateral malleolus of right fibula, initial encounter for closed fracture (principal); X50.1XXA Overexertion from prolonged static or awkward postures, initial encounter; Y93.01 Activity, walking, marching and hiking; Y99.8 Other external cause status; Y92.89 Other specified places as the place of occurrence of the external cause
CPT/HCPCS: 73610; 99283